=== PATIENT | female | born 1950 | race Caucasian/White ===

== ENCOUNTER → 2019-12-28 | Outpatient (CLI) | payer MEDICARE, OTHER ==
[~2019-12-28] MED LIST: ASPI81CH PO; BUDE6HFA INH; CYCL10 PO; DOCU100 PO; DULO30 PO; ENOX40I SC; ERGO400 PO; ESOM20 PO; FENT50TP; FENT50TP TOP; FISH1000 PO; HYDACE10B PO; HYDACE5; HYDACE7.5 PO; IBUP800 PO; LEVSOD50; LEVSOD75 PO; LISI5 PO; LORA.5 PO; MECL25 PO; META800 PO; METF500C PO; MILK OF MAGNESIA; MILK OF MAGNESIA PO; Miralax17 GM PO; NAPR500 PO; NIAC500ER; NIAC500ER PO; NIFE30ER PO; OMEP20ER; SOF-LAX100 MG PO; Sen-O-Tab8.6 MG PO
== END | disposition home or self-care (01) ==
LOC: LAB SHORT 12:50 → LAB EV 12:50
DX: N39.0 Urinary tract infection, site not specified (principal)
CPT/HCPCS: 87086

== ENCOUNTER → 2020-06-28 | Outpatient (CLI) | payer MEDICARE, OTHER | END | disposition home or self-care (01) | LOC: PLD 14:57 → LAB SHORT 14:57 | DX: D22.5 Melanocytic nevi of trunk (principal); L82.1 Other seborrheic keratosis | CPT/HCPCS: 88305 ==

== ENCOUNTER → 2021-05-17 | Outpatient (CLI) | payer MEDICARE, OTHER | END | disposition home or self-care (01) | LOC: LAB 15:10 → LAB SHORT 15:10 | PROVIDERS: Family Medicine | DX: Z51.81 Encounter for therapeutic drug level monitoring (principal); Z79.899 Other long term (current) drug therapy | CPT/HCPCS: G0480 ==

== ENCOUNTER 2021-09-10 11:07 | Day surgery (SDC) | payer MEDICARE, OTHER ==
[~2021-09-10] VITALS: Ht 165.1 cm; Wt 88.8 kg
[~2021-09-10 11:07] MED LIST changes: +ACYC200 PO; +GABA100 PO; +HYDHCL25 PO; +Ventolin5 MG/1 ML INH
--- NOTE | 2021-09-10 11:58 | NUR ---
Ambulatory in Day Surgery History, Chart, Medications and Allergies reviewed before start of procedure. Lungs clear T/O to Auscultation. Patient confirms NPO status and agrees with scheduled surgery. Pre-Op teaching done. Pt verbalizes understanding. Patient States Post-Procedure ride home has been arranged.
--- NOTE | 2021-09-10 12:36 | NUR ---
09/10/21 1236 Phoebe Brady History, Chart, Medications and Allergies reviewed before start of procedure. Patient confirms NPO status and agrees with scheduled surgery. 3-LEAD EKG REVIEWED WITH PHYSICIAN PRIOR TO START OF PROCEDURE. MONITOR INTACT WITH CONTINUOUS PULSE OXIMETRY AND INTERMITTENT BP. Bite Block Placed & REMOVED AT END OF PROCEDURE. TIVA CARE BY . SEE PAPER ANESTHSIA RECORD.
--- NOTE | 2021-09-10 14:39 | NUR ---
Patient up to Ambulate independently. Gait steady. Discharge instructions reviewed with patient. Patient verbalizes understanding. Copy given to patient to take home. Discharged via wheelchair to private car for ride home.
== END 2021-09-10 23:26 | disposition home or self-care (01) ==
LOC: ORSCMMR 11:07 → ORSCSDS 12:30 → ORD 12:30 → ORSCMMR 12:30
PROVIDERS: Internal Medicine Gastroenterology
PROC: 0DBK8ZX Excision of Ascending Colon, Via Natural or Artificial Opening Endoscopic, Diagnostic (ICD-10-PCS; principal; 2021-09-10 12:15)
PROC: 0DBL8ZX Excision of Transverse Colon, Via Natural or Artificial Opening Endoscopic, Diagnostic (ICD-10-PCS; principal; 2021-09-10 12:15)
PROC: 0DBH8ZX Excision of Cecum, Via Natural or Artificial Opening Endoscopic, Diagnostic (ICD-10-PCS; principal; 2021-09-10 12:15)
PROC: 0DB68ZX Excision of Stomach, Via Natural or Artificial Opening Endoscopic, Diagnostic (ICD-10-PCS; 2021-09-10 12:15)
DX: K21.9 Gastro-esophageal reflux disease without esophagitis (principal); Z12.11 Encounter for screening for malignant neoplasm of colon; Z86.010 Personal history of colon polyps; K29.70 Gastritis, unspecified, without bleeding; D12.0 Benign neoplasm of cecum; D12.2 Benign neoplasm of ascending colon; K51.40 Inflammatory polyps of colon without complications; M34.1 CR(E)ST syndrome; F32.A Depression, unspecified; K64.8 Other hemorrhoids; G47.33 Obstructive sleep apnea (adult) (pediatric); K57.30 Diverticulosis of large intestine without perforation or abscess without bleeding; I10 Essential (primary) hypertension; E66.9 Obesity, unspecified; Z68.32 Body mass index [BMI] 32.0-32.9, adult; Z79.82 Long term (current) use of aspirin; Z79.899 Other long term (current) drug therapy
CPT/HCPCS: 82947; 88305; 88342; J2704; J7120

== ENCOUNTER → 2022-01-14 | Outpatient (CLI) | payer MEDICARE, OTHER | END | disposition home or self-care (01) | LOC: LAB SHORT 12:10 | DX: L57.0 Actinic keratosis (principal) | CPT/HCPCS: 88305 ==

== ENCOUNTER → 2022-02-28 | Outpatient (CLI) | payer MEDICARE, OTHER ==
[2022-02-28 15:57] LABS: Calcium, Urine 24.4 mg/dL (< 17.5); Calcium, Urine Calculation 512.4 mg/24hrs (42.0-353.0)
== END | disposition home or self-care (01) ==
LOC: LAB SHORT 14:18 → LAB 14:18
PROVIDERS: Family Medicine
DX: E83.52 Hypercalcemia (principal)
CPT/HCPCS: 81050; 82340

== ENCOUNTER → 2023-01-20 | Outpatient (CLI) | payer MEDICARE, OTHER | END | disposition home or self-care (01) | LOC: PLD 14:48 → LAB SHORT 14:48 | DX: C44.519 Basal cell carcinoma of skin of other part of trunk (principal) | CPT/HCPCS: 88305 ==

== ENCOUNTER 2023-03-11 06:20 | Day surgery (SDC) | payer MEDICARE, OTHER ==
[~2023-03-11] VITALS: Ht 165.1 cm; Wt 87.5 kg
--- NOTE | 2023-03-11 08:12 | NUR ---
03/11/23 0812 Erinn Ng LIDOCAINE 2% WITH EPI 1:100,000 VERIFIED AND DILUTED 1:1 WITH NORMAL SALINE TO MAKE LIDOCAINE 1% WITH EPI 1:200,000 FOR INJECTION AT [facility] BY DR LIMON. 2.5ML INJECTED INITIALLY.
[2023-03-11 11:05] VITALS: BP 132/71
--- NOTE | 2023-03-11 11:41 | NUR ---
03/11/23 1141 Asaf Roberson PT ABLE TO TOLERATE EATING AND DRINKING WITH NO ISSUES. PT DENIED NAUSEA. PT C/0 5/10 PAIN POST MEDICATION ADMINISTRATION BEFORE DISCHARGE, PT STATED PAIN IS TOLERABLE AND EXPRESSED READINESS TO GO HOME. PT VSS ON RA. PT O2 SATURATIONS DECREASED TO LOW 90S. PT STATED O2 LEVELS ARE TYPICALLY 88-93% AT BASELINE. O2 SATURATIONS INCREASED WITH DEEP BREATHS, NO S/S OF DISTRESS AND PT DENIED SOB. VSS. DISCHARGE INSTRUCTIONS GIVEN, ALL QUESTIONS ANSWERED BEFORE DC.
== END 2023-03-11 11:35 | disposition home or self-care (01) ==
LOC: ORSCSDS 06:20
PROVIDERS: Otolaryngology
PROC: 0GBM0ZZ Excision of Left Superior Parathyroid Gland, Open Approach (ICD-10-PCS; principal; 2023-03-11 07:30)
PROC: 0GBL0ZZ Excision of Right Superior Parathyroid Gland, Open Approach (ICD-10-PCS; principal; 2023-03-11 07:30)
DX: E21.0 Primary hyperparathyroidism (principal); K21.9 Gastro-esophageal reflux disease without esophagitis; G47.33 Obstructive sleep apnea (adult) (pediatric); Z79.899 Other long term (current) drug therapy
CPT/HCPCS: 82947; 83970; 88305; 88331; 88332; A9270; J1100; J2250; J2405; J2704; J3010; J7120

== ENCOUNTER → 2023-03-30 | Outpatient (CLI) | payer MEDICARE, OTHER | LOC: LAB SHORT 14:10 → LAB 14:10 | PROVIDERS: Family Medicine | DX: G89.4 Chronic pain syndrome (principal) | CPT/HCPCS: G0480 ==

== ENCOUNTER 2023-06-15 06:43 | Day surgery (SDC) | payer MEDICARE, OTHER ==
[2023-06-15] VITALS (20 sets, daily range): BP systolic 108–145; BP diastolic 40–80
[~2023-06-15] VITALS: Ht 162.6 cm; Wt 91.5 kg
[~2023-06-15 06:43] MED LIST changes: -FISH1000 PO; +Fish Oil PO; +MAGNESIUM PO; +METTREX2.5 PO; +Norco 5-325 Ta1 EACH PO
--- NOTE | 2023-06-15 07:34 | NUR ---
Patient up to Ambulate independently. Gait steady. Surgical site prepped with 2% Chlorhexidine cloth wipe. History, Chart, Medications and Allergies reviewed before start of procedure. Lungs clear T/O to Auscultation. Patient confirms NPO status and agrees with scheduled surgery. Patient States Post-Procedure ride home has been arranged.
--- NOTE | 2023-06-15 16:58 | NUR ---
SHIFT SUMMARY PT IS POD 1 FROM RIGHT TOTAL KNEE REPLACEMENT. PT IS A&O X4. PT UP TO AMBULATE WITH PHYSICAL THERAPY. POLAR PACK IN PLACE, PAIN MANAGED PER EMR. AQUACEL IN PLACE, DRESSING C/D/I. IV IN RIGHT UPPER ARM, PATENT, DRESSING INTACT. VSS, LUNG SOUNDS CTA BILATERALLY, AFEBRILE, BREATHING UNLABORED AND EVEN. PT HAD ONE EVENT OF URINE INCONTINENCE UPON RETURN FROM SURGERY. SHE HAS BEEN UP TO USE THE RESTROOM SINCE AND HAS NOT HAD ANOTHER EPISODE. PT'S PARTNER AT BEDSIDE, PT IS RESTING IN CHAIR COMFORTABLY WITH CALL LIGHT WITHIN REACH.
[2023-06-16 03:06] VITALS: BP 104/47
[2023-06-16 04:23] LABS: BASOPHILS ABSOLUTE AUTO 0.02 K/mm3 (0.00-0.23); BASOPHILS PERCENT AUTO 0 % (0-2); EOSINOPHILS PERCENT AUTO 0 % (0-6); Hemoglobin 9.7 g/dL (11.5-16.0); IMMATURE GRAN ABSOLUTE AUTO 0.05 K/mm3 (0.00-0.10); IMMATURE GRAN PERCENT AUTO 0 % (0-1); LYMPHOCYTES ABSOLUTE AUTO 1.09 K/mm3 (0.84-5.20); LYMPHOCYTES PERCENT AUTO 10 % (21-46); MONOCYTES ABSOLUTE AUTO 0.93 K/mm3 (0.16-1.47); MONOCYTES PERCENT AUTO 8 % (4-13); Mean Corpuscular HGB 33.9 pg (26.0-34.0); Mean Corpuscular HGB Conc 33.4 g/dL (31.5-36.5); Mean Corpuscular Volume 101 fL (80-100); Mean Platelet Volume 9.4 fL (9.1-12.4); NEUTROPHILS ABSOLUTE AUTO 9.16 K/mm3 (1.96-9.15); NEUTROPHILS PERCENT AUTO 81 % (41-73); Platelet Count 182 K/mm3 (150-400); RDW Coefficient Variation 13.5 % (11.7-14.2); RDW Standard Deviation 50.4 fL (35.1-46.3); Red Blood Cell Count 2.86 M/mm3 (3.80-5.20); White Blood Cell Count 11.25 K/mm3 (4.00-11.30)
[2023-06-16 04:46] LABS: Bun/Creatinine Ratio 17.3 (12.0-20.0); Calcium, Blood 8.5 mg/dL (8.5-10.1); Creatinine, Blood 0.64 mg/dL (0.40-1.00); Magnesium, Blood 2.1 mg/dL (1.6-2.4); Potassium, Blood 4.1 mmol/L (3.5-5.5)
[2023-06-16 04:47] VITALS: BP 116/56
--- NOTE | 2023-06-16 05:05 | NUR ---
SHIFT SUMMARY POD1 R TKA. AQUACEL IS C/D/I. SENSATION AND CIRCULATION REMAIN INTACT IN RLE. VSS. PT SLEPT LITTLE T/O THE NIGHT, REPORTED D/T UNFAMILIAR ENVIORNMENT. MEDICATED FOR PAIN WITH 1-2 NORCO AND SCHEDULED MEDICATION. PT AMBULATING TO BATHROOM, VOIDING W/O DIFFICULTY. TOLLERATING PO INTAKE. PLAN FOR PT TO WORK WITH PT THIS AM AND D/C HOME. THE PATIENT IS RESTING, IN NO DISTRESS, CALL LIGHT IN REACH
[2023-06-16 07:39] VITALS: BP 135/59
--- NOTE | 2023-06-16 12:51 | NUR ---
DISCHARGE SUMMARY POD1 R TKA, A/OX4, VSS, TOLERATING PO, PAIN WELL MANAGED, VOIDING WELL, AMBULATING WITH FWW/GB AND SBA FOR SAFETY, AQUACELL TO R KNEE C/D/I, CIRCULATION IN LOWER EXTREMITIES INTACT WITH CAP REFILL < 3 SECONDS, MOTOR AND SENSORY IN DISTAL R LEG ALSO INTACT, LUNGS CLEAR, PATIENT DENIES SOB T/O THE SHIFT. DISCUSSED DISCHARGE INSTRUCTIONS WITH HER AND HER INCLUDING HOME CARE, MEDICATIONS, AND FOLLOW UP APPOINTMENTS, IV REMOVED PRIOR TO DC, NO QUESTIONS AT THIS TIME. PROVIDED HER WITH ADDITIONAL DRESSINGS FOR DRESSING CHANGE AT HOME. PT ESCORTED OUT VIA WC TO PRIVATE AUTO TO GO HOME.
== END 2023-06-16 11:42 | disposition home or self-care (01) ==
LOC: ORSCMMR 06:43 → ORD 07:30 → SURS 11:18 → ORSCMMR 11:19 → SURS 06-16 11:42 → ORSCMMR 06-16 11:42
PROVIDERS: Orthopaedic Surgery
PROC: 0QP104Z Removal of Internal Fixation Device from Sacrum, Open Approach (ICD-10-PCS; principal; 2023-06-15 07:30)
PROC: 0SRC0J9 Replacement of Right Knee Joint with Synthetic Substitute, Cemented, Open Approach (ICD-10-PCS; principal; 2023-06-15 07:30)
DX: M17.0 Bilateral primary osteoarthritis of knee (principal); T84.84XA Pain due to internal orthopedic prosthetic devices, implants and grafts, initial encounter; G47.33 Obstructive sleep apnea (adult) (pediatric); F32.A Depression, unspecified; M79.7 Fibromyalgia; M34.1 CR(E)ST syndrome; K21.9 Gastro-esophageal reflux disease without esophagitis; Z79.899 Other long term (current) drug therapy
CPT/HCPCS: 27447; 0055T; 20680; 36415; 73560-RT; 80048; 82947; 83735; 85025; 97110; 97110-CQ; 97116; 97116-CQ; 97161; 97530-CQ; A9270; C1713; C1776; J0171; J0690; J0735; J1100; J1170; J1815; J1885; J2250; J2371; J2405; J2704; J2795; J3010; J7120

== ENCOUNTER → 2023-06-25 | Outpatient (CLI) | payer MEDICARE, OTHER ==
[2023-06-25 17:51] LABS: Source, Urine Clean Catch
[2023-06-25 18:42] LABS: Bacteria Few /hpf; Red Blood Cells, Urine 0-2 /hpf (0-2); Squamous Epithelial Cells Few /hpf (Few)
== END | disposition home or self-care (01) ==
LOC: LAB SHORT 17:49 → LAB 17:49
PROVIDERS: Family Medicine
DX: R30.0 Dysuria (principal)
CPT/HCPCS: 81015; 87086

== ENCOUNTER 2024-05-19 10:53 | Inpatient (IN) | payer MEDICARE, OTHER ==
[~2024-05-19] VITALS: Ht 162.6 cm; Wt 91.5 kg
[~2024-05-19 10:53] MED LIST changes: +FISH OIL 1,0001 EA10 PO; -Fish Oil PO
[2024-05-19 11:32] LABS: BASOPHILS ABSOLUTE AUTO 0.03 K/mm3 (0.00-0.23); BASOPHILS PERCENT AUTO 0 % (0-2); EOSINOPHILS PERCENT AUTO 0 % (0-6); Hematocrit 33.5 % (33.0-51.0); Hemoglobin 11.6 g/dL (11.5-16.0); IMMATURE GRAN ABSOLUTE AUTO 0.03 K/mm3 (0.00-0.10); IMMATURE GRAN PERCENT AUTO 0 % (0-1); LYMPHOCYTES ABSOLUTE AUTO 0.81 K/mm3 (0.84-5.20); LYMPHOCYTES PERCENT AUTO 10 % (21-46); MONOCYTES ABSOLUTE AUTO 0.72 K/mm3 (0.16-1.47); MONOCYTES PERCENT AUTO 9 % (4-13); Mean Corpuscular HGB 34.4 pg (26.0-34.0); Mean Corpuscular HGB Conc 34.6 g/dL (31.5-36.5); Mean Corpuscular Volume 99 fL (80-100); Mean Platelet Volume 9.1 fL (9.1-12.4); NEUTROPHILS ABSOLUTE AUTO 6.37 K/mm3 (1.96-9.15); NEUTROPHILS PERCENT AUTO 80 % (41-73); Platelet Count 249 K/mm3 (150-400); RDW Coefficient Variation 13.7 % (11.7-14.2); RDW Standard Deviation 49.8 fL (35.1-46.3); Red Blood Cell Count 3.37 M/mm3 (3.80-5.20); White Blood Cell Count 7.96 K/mm3 (4.00-11.30)
[2024-05-19] MEDS ORDERED: NS 1,000 ML IV SCH (11:45)
[2024-05-19] MEDS ORDERED: CefTRIAXone Sodium 1,000 MG in NS 100 ML IV ONE (11:45)
[2024-05-19] MEDS ORDERED: Azithromycin 500 MG in NS 250 ML IV ONE (11:45)
[2024-05-19 11:58] LABS: Albumin, Blood 3.5 g/dL (3.4-5.0); Bilirubin, Total 1.1 mg/dL (0.1-1.0); Calcium, Blood 8.7 mg/dL (8.5-10.1); Creatinine, Blood 0.57 mg/dL (0.40-1.00); Globulin, Blood 3.6 g/dL (2.2-4.0); Total Protein, Blood 7.1 g/dL (6.4-8.2)
[2024-05-19 12:26] LABS: Influenza A, PCR NEGATIVE (NEGATIVE); Influenza B, PCR NEGATIVE (NEGATIVE); Resp Syncytial Virus, PCR NEGATIVE (NEGATIVE); SARS-Cov-2 (COVID-19) PCR, MMC NEGATIVE (NEGATIVE)
[2024-05-19] MEDS ORDERED: Ondansetron 4 MG TAB PO PRN (13:45)
[2024-05-19] MEDS ORDERED: Ondansetron HCl 2 MG / ML 2ML Vial IV PRN (13:45)
[2024-05-19] MEDS ORDERED: Acetaminophen 325 MG TABLET PO PRN (13:50)
[2024-05-19] MEDS ORDERED: FLU VACC TS2024-25(6MOS UP)/PF 45 MCG/0.5 ML SYRINGE IM SCH (13:50)
[2024-05-19 14:55] VITALS: BP 123/66
[2024-05-19] MEDS ORDERED: Ipratropium/Albuterol SulF 2.5-0.5MG/3 ML Amp INH SCH (15:05)
[2024-05-19] MEDS ORDERED: MAG GLYCINATE100 MG PO (15:13)
[2024-05-19] MEDS ORDERED: ALBU90OI INH (15:17)
[2024-05-19] MEDS ORDERED: GABA300 PO (15:18)
[2024-05-19] MEDS ORDERED: AZIT250 PO (15:19)
[2024-05-19] MEDS ORDERED: PRED20 PO (15:20)
[2024-05-19] MEDS ORDERED: BENZ100A PO (15:21)
[2024-05-19] MEDS ORDERED: FOLI1 PO (15:22)
[2024-05-19] MEDS ORDERED: MethylPREDNISolone Sod Succ 40 MG VIAL IV SCH (16:00)
[2024-05-19 19:28] VITALS: BP 117/58
--- NOTE | 2024-05-19 19:28 | NUR ---
SHIFT SUMMARY PT GOT TO FLOOR AT 1440. TRANSFERED BY BED AND TRANSFERED SELF INDEPENDENTLY TO BED IN ROOM. PT ADMITTED DUE TO ACUTE RESPIRATORY FAILURE. PT ON 5L O2 VIA N/C. PT SPO2 93%. PT INDEPENDENTLY AMBULATES TO TOILET. PT VOIDING AND EATING ADEQUATE. PT HAS PRODUCTIVE COUGH. PT REPORTS CHRONIC BACK PAIN. EDUCATED PT ABOUT TURN COUGH DEEP BREATHING. PT ON TELE. VSS. BELONGINGS ARE NEAR PT. PT CALLS APPROPRIATELY, AND CALL LIGHT IN REACH.
[2024-05-19] MEDS ORDERED: Famotidine 20 MG Tab PO SCH (21:00)
[2024-05-20] MEDS ORDERED: Benzonatate 100 MG Cap PO PRN (00:10)
[2024-05-20] MEDS ORDERED: HYDROcodone 5-APAP 325 TAB PO PRN (00:10)
[2024-05-20 02:15] VITALS: BP 103/60
--- NOTE | 2024-05-20 05:35 | NUR ---
VSS. OXYGEN SATURATIONS >90% ON CPAP. PAIN MANAGED WITH PRN PO PAIN MEDS. PT MISSED SOME MEDICATIONS YESTERDAY, MED REC ISSUES. PT IND IN ROOM, MAKES NEEDS KNOWN. TELE NSR.
[2024-05-20] MEDS ORDERED: Levothyroxine Sodium 0.075 MG Tab PO SCH (06:00)
[2024-05-20 06:19] LABS: Hematocrit 35.3 % (33.0-51.0); Hemoglobin 12.1 g/dL (11.5-16.0); Mean Corpuscular HGB 34.5 pg (26.0-34.0); Mean Corpuscular HGB Conc 34.3 g/dL (31.5-36.5); Mean Corpuscular Volume 101 fL (80-100); Mean Platelet Volume 9.1 fL (9.1-12.4); Platelet Count 274 K/mm3 (150-400); RDW Coefficient Variation 13.7 % (11.7-14.2); RDW Standard Deviation 50.3 fL (35.1-46.3); Red Blood Cell Count 3.51 M/mm3 (3.80-5.20); White Blood Cell Count 7.78 K/mm3 (4.00-11.30)
[2024-05-20 06:44] LABS: BAND PERCENT MAN 4 % (0-8); BASOPHILS PERCENT MAN 0 % (0-2); EOSINOPHILS PERCENT MAN 0 % (0-6); LYMPHOCYTES ABSOLUTE MAN 0.77 K/mm3 (0.84-5.20); LYMPHOCYTES PERCENT MAN 10 % (21-46); MONOCYTES ABSOLUTE MAN 0.07 K/mm3 (0.16-1.47); MONOCYTES PERCENT MAN 1 % (4-13); MYELOCYTE ABSOLUTE MAN 0.07 K/mm3 (0.00-0.00); MYELOCYTE PERCENT MAN 1 % (0-0); NEUTROPHILS ABSOLUTE MAN 6.84 K/mm3 (1.96-9.15); SEG NEUTROPHILS PERCENT MAN 84 % (41-73); TOTAL CELLS COUNTED 100
[2024-05-20 07:17] LABS: Albumin, Blood 3.2 g/dL (3.4-5.0); Albumin/Globulin Ratio 0.8 (0.8-1.8); Bilirubin, Total 0.6 mg/dL (0.1-1.0); Bun/Creatinine Ratio 15.8 (12.0-20.0); Calcium, Blood 8.6 mg/dL (8.5-10.1); Creatinine, Blood 0.44 mg/dL (0.40-1.00); Globulin, Blood 4.2 g/dL (2.2-4.0); Potassium, Blood 3.7 mmol/L (3.5-5.5); Total Protein, Blood 7.4 g/dL (6.4-8.2)
[2024-05-20 07:59] VITALS: BP 117/60
[2024-05-20] MEDS ORDERED: DULoxetine HCL 60 MG Capsule DR PO SCH (09:00)
[2024-05-20] MEDS ORDERED: NIFEdipine 30 MG TabCR PO SCH (09:00)
[2024-05-20] MEDS ORDERED: Gabapentin 300 MG Cap PO SCH (09:00)
[2024-05-20] MEDS ORDERED: CefTRIAXone Sodium 1,000 MG in NS 100 ML IV SCH (09:00)
[2024-05-20] MEDS ORDERED: Azithromycin 500 MG in NS 250 ML IV SCH (09:00)
[2024-05-20] MEDS ORDERED: Heparin Sodium,Porcine 5,000 UNIT/0.5 ML SDV SC SCH (09:00)
[2024-05-20] MEDS ORDERED: Pantoprazole Sodium 40 MG Tab PO SCH (09:00)
[2024-05-20] MEDS ORDERED: Folic Acid 1 MG TAB PO SCH (09:00)
[2024-05-20] MEDS ORDERED: NS 250 ML IV PRN (09:05)
[2024-05-20] MEDS ORDERED: Guaifenesin/Dextromethorphan Syrup 5 ML UDC PO PRN (10:15)
[2024-05-20] MEDS ORDERED: Hydroxychloroq200 MG PO (15:42)
[2024-05-20] MEDS ORDERED: Diflucan150 MG PO (15:43)
[2024-05-20 15:46] VITALS: BP 138/62
--- NOTE | 2024-05-20 18:34 | NUR ---
SHIFT SUMMARY PT CONT LEVEL OF CARE WITH NO ACUTE CHANGES NOTED. PT IS A&O X4 AND INDEPENDENT IN ROOM. PT WAS TITRATING DOWN ON 02 BUT HAD TO BE PLACED BACK ON 1L D/T DESTATING INTO THE LOW 80S PT IS CURRENTLY ON 1L/NC AND AT 90%. PHYSICAIN WANTS TO TRY TO CONT TO WORK ON TITRATING PT BACK TO ROOM AIR.
[2024-05-20 20:41] VITALS: BP 112/64
[2024-05-20] MEDS ORDERED: Magnesium Oxide 400 MG Tab PO SCH (21:00)
[2024-05-20] MEDS ORDERED: Misc. Tablet PO SCH (21:00)
[2024-05-21 04:31] VITALS: BP 122/61
--- NOTE | 2024-05-21 05:02 | NUR ---
HEADEND TECHNICIAN SUMMARY PT A/OX4. NO ACUTE CHANGES. PT PLEASANT AND COOPERATIVE. ABLE TO MAKE NEEDS KNOWN. PT REPORTS HAVING GENERALIZED AND BACK PAIN. MEDS GIVEN PER OCT. PT ON 1LPM NASAL CANULA. CPAP WHEN SLEEPING WITH CONT BIOX. PT WAS FOUND TO BE DESATING DOWN TO THE 80'S ON CPAP W/O OXYGEN. 1LPM BLEED IN WAS REQUIRED TO MAINTAIN SATS ABOVE 90%. PT CONTINUES TO HAVE PRODUCTIVE COUGH. MED WITH CATHLEEN AND BARBARA MCKEON. CALL LIGHT ACCESSIBLE.
[2024-05-21 07:34] VITALS: BP 125/61
[2024-05-21] MEDS ORDERED: CefTRIAXone 1000 MG Vial ONE (09:16)
[2024-05-21] MEDS ORDERED: Nystatin 100,000 Unit/ML Susp 5 ML UDC PO SCH (13:00)
[2024-05-21 15:33] VITALS: BP 144/69
--- NOTE | 2024-05-21 18:26 | NUR ---
SHIFT SUMMARY PT CONT LEVEL OF CARE WITH NO ACUTE CHANGES NOTED. PER PHYSICIAN PT WAS TO TRY TO TITRATE DOWN TO ROOM AIR THIS SHIFT. PT NOTED TO DESTAT WITH EXERTION OR WHILE EATING TO THE LOW 80S AND WAS PLACED BACK ON 2L OF SUPPLEMENTAL OXYGEN. PHYSICIAN NOTIFIED AND ORDERED HOME O2 EVAL FOR TOMORROW PT IS A POSSIBLE DC TOMORROW.
[2024-05-21 19:28] VITALS: BP 139/61
[2024-05-22 03:17] VITALS: BP 144/75
--- NOTE | 2024-05-22 04:36 | NUR ---
INSURANCE JOB TITLES SUMMARY PT A/OX4. NO ACUTE CHANGES. PT REMAINS ON 1LPM OXYGEN WITH NASAL CANNULA AND CPAP WITH 1L BLEED IN T/O THE NIGHT. MEDS GIVEN PER OCT. CALL LIGHT ACCESSIBLE.
[2024-05-22 04:56] LABS: Hematocrit 32.4 % (33.0-51.0); Hemoglobin 10.8 g/dL (11.5-16.0); Mean Corpuscular HGB 34.2 pg (26.0-34.0); Mean Corpuscular HGB Conc 33.3 g/dL (31.5-36.5); Mean Corpuscular Volume 103 fL (80-100); Platelet Count 270 K/mm3 (150-400); RDW Coefficient Variation 13.9 % (11.7-14.2); RDW Standard Deviation 52.9 fL (35.1-46.3); Red Blood Cell Count 3.16 M/mm3 (3.80-5.20); White Blood Cell Count 12.68 K/mm3 (4.00-11.30)
[2024-05-22 05:19] LABS: Albumin/Globulin Ratio 0.9 (0.8-1.8); Bilirubin, Total 0.3 mg/dL (0.1-1.0); Bun/Creatinine Ratio 20.2 (12.0-20.0); Calcium, Blood 8.5 mg/dL (8.5-10.1); Creatinine, Blood 0.54 mg/dL (0.40-1.00); Globulin, Blood 3.4 g/dL (2.2-4.0); Potassium, Blood 3.9 mmol/L (3.5-5.5); Total Protein, Blood 6.4 g/dL (6.4-8.2)
[2024-05-22 05:26] LABS: BAND PERCENT MAN 1 % (0-8); BASOPHILS PERCENT MAN 0 % (0-2); EOSINOPHILS PERCENT MAN 0 % (0-6); LYMPHOCYTES ABSOLUTE MAN 1.64 K/mm3 (0.84-5.20); LYMPHOCYTES PERCENT MAN 13 % (21-46); METAMYELOCYTE ABSOLUTE MAN 0.12 K/mm3 (0.00-0.00); METAMYELOCYTE PERCENT MAN 1 % (0-0); MONOCYTES ABSOLUTE MAN 0.76 K/mm3 (0.16-1.47); MONOCYTES PERCENT MAN 6 % (4-13); MYELOCYTE PERCENT MAN 4 % (0-0); NEUTROPHILS ABSOLUTE MAN 9.63 K/mm3 (1.96-9.15); SEG NEUTROPHILS PERCENT MAN 75 % (41-73); TOTAL CELLS COUNTED 100
[2024-05-22 07:19] VITALS: BP 125/76
[2024-05-22] MEDS ORDERED: PredniSONE 20 MG Tab PO SCH (09:00)
--- NOTE | 2024-05-22 15:56 | NUR ---
DISCHARGE SUMMARY PT DC THIS SHIFT. DC INSTRUCTION GONE OVER WITH PT WHOM STATED UNDERSTANDING. PT WAS ESCORTED VIA WHEELCHIAR BY LEAD ATHLETE TO PRIVATE VEHICLE.
== END 2024-05-22 15:52 | disposition home or self-care (01) | DRG 193 ==
LOC: ER 10:53 → MEDS 10:54 → ERHOLD 10:54 → MEDS 14:42 → ENPENDDIS 05-22 14:06 → MEDS 05-22 15:52
PROVIDERS: Emergency Medicine; ADMIT Internal Medicine
DX: J18.9 Pneumonia, unspecified organism (principal); J96.01 Acute respiratory failure with hypoxia; J45.901 Unspecified asthma with (acute) exacerbation; J44.1 Chronic obstructive pulmonary disease with (acute) exacerbation; J44.0 Chronic obstructive pulmonary disease with (acute) lower respiratory infection; I10 Essential (primary) hypertension; E78.5 Hyperlipidemia, unspecified; M34.1 CR(E)ST syndrome; E03.9 Hypothyroidism, unspecified; K21.9 Gastro-esophageal reflux disease without esophagitis; Z88.8 Allergy status to other drugs, medicaments and biological substances; Z79.899 Other long term (current) drug therapy; Z79.890 Hormone replacement therapy; Z79.84 Long term (current) use of oral hypoglycemic drugs; Z90.49 Acquired absence of other specified parts of digestive tract; Z98.890 Other specified postprocedural states
CPT/HCPCS: 0241U; 36415; 71045; 80053; 83605; 83880; 84145; 84484; 85025; 87040; 93005; 93010; 94640; 94664; 94760; 94761; 94762; 96374; 99285-25; A9270; G0378; J0456; J0696; J1644; J2919; J7030; J7050; J7512